=== PATIENT | female | born 2005 | race Asian ===

== ENCOUNTER 2025-06-09 20:37 | Emergency (ER) | payer OTHER ==
[~2025-06-09] VITALS: Ht 149.9 cm; Wt 48.6 kg
[2025-06-09 20:39] VITALS: BP 97/65; PULSE 70; RESP 16; TEMP 97.7; O2SAT 100
[2025-06-09 22:07] LABS: PLATELET COUNT (AUTO) 339 K/uL (150-450); RED BLOOD CELL COUNT(AUTO) 4.59 MIL/uL (4.00-5.20); RED CELL DISTRIBUTION WIDTH 13.2 % (11.5-14.5); WHITE BLOOD COUNT (AUTO) 13.0 K/uL (4.5-11.0)
[2025-06-09] MEDS: KETOROLAC TROMETHAMINE 30 MG/ML VIAL IVP ONE (22:10)
[2025-06-09] MEDS: FAMOTIDINE 20 MG/2 ML VIAL IVP ONE (22:10)
[2025-06-09] MEDS: SODIUM CHLORIDE 0.9% 1,000 ML IV ONE (22:10)
[2025-06-09] MEDS: ONDANSETRON HCL 4 MG/2 ML VIAL IVP ONE (22:10)
[2025-06-09 22:14] LABS: CALCIUM, TOTAL 9.1 mg/dL (8.8-10.5); CREATININE 0.76 mg/dL (0.60-1.30); GLOMERULAR FILTR. RATE CALC > 60 mL/min (>60); GLUCOSE,RANDOM 87 mg/dL (70-110); SODIUM SERUM 139 mmol/L (136-145); UREA NITROGEN, BLOOD 11 mg/dL (7-18)
[2025-06-09 22:20] LABS: ASPARTATE AMINOTRANSFERASE 97.0 U/L (15-37); TOTAL PROTEIN, SERUM 7.7 g/dL (6.4-8.2)
[2025-06-09] MEDS: PB/HYOSCY/ATR/SCOP/LIDO/MAALOX 55 ML BOTTLE PO ONE (23:10)
[2025-06-10] MEDS ORDERED: FAMO20 PO (00:04)
== END 2025-06-10 00:38 | disposition home or self-care (01) ==
LOC: EMS 20:37
DX: K29.70 Gastritis, unspecified, without bleeding (principal)
CPT/HCPCS: 99284; 96374; 96375; 80048; 80076; 83690; 84703; 85025; 36415; 93005; J1885; J3490; J2405; J7030